=== PATIENT | male | born 1940 | race Caucasian/White ===

== ENCOUNTER 2016-06-02 15:09 | Outpatient (RCR) | payer MEDICARE ==
--- OUTSIDE RECORDS SUMMARY | 2016-03-24 14:20 | XMS REPORT | Continuity of Care Document ---
Author Author [facility] Organization [facility] Address Unknown Phone Unavailable Care Team Providers Care Recordings Librarian Name Role Phone Juancarlos Cabrera PCP [phone] Source Comments Some departments are not documenting in the electronic medical record. If you do not see the information that you expected, contact Release of Information in the Health Information Management department at [phone] for further assistance in locating additional records.[facility] Active Allergies and Adverse Reactions Allergen Noted Date Severity Reactions Comments Penicillins 09/29/2014 High HIVES, RASH, BLISTERS Current Medications Prescription Sig. Disp. Refills Start End Date Status Date quinapril(+) (ACCUPRIL) Take 20 mg by mouth every Active 20 mg tablet morning. lovastatin(+) (MEVACOR) Take 40 mg by mouth at Active 40 mg tablet bedtime daily. 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 DM (diabetes mellitus) (HCC) 09/29/2014 Social History Tobacco Use Types Packs/Day Years Used Date Former Smoker Cigarettes 1 20 Quit: 06/19/1979 Smokeless Tobacco: Never Used Alcohol Use Drinks/Week oz/Week Comments No Last Filed Vital Signs Vital Sign Reading Time Taken Blood Pressure 158/84 03/24/2015 2:19 PM CDT Pulse 50 03/24/2015 2:00 PM CDT Temperature 36.3 C (97.3 F) 03/24/2015 2:00 PM CDT Respiratory Rate - - Height 1.803 m (5' 11") 03/24/2015 2:00 PM CDT Weight 93.713 kg (206 lb 9.6 oz) 03/24/2015 2:00 PM CDT Body Mass Index 28.83 03/24/2015 2:00 PM CDT Oxygen Saturation 99% 03/24/2015 2:00 PM CDT Plan of Care Health Maintenance Due Date Last Done Comments Physical (Comprehensive) 1947 Exam Pertussis Vaccine 1952 Tetanus Vaccine 1958 Colorectal Cancer 1991 Screening Shingles Vaccine 2001 Prevnar/Pneumovax (#1) 2006 Influenza Vaccine 02/18/2016 Results from Last 3 Months Not on file
[2016-03-24 16:18] LABS: BASOPHILS % (AUTO) 0 % (0-10); EOSINOPHILS # (AUTO) 0.1 10^3/uL (0.0-0.3); EOSINOPHILS % (AUTO) 1 % (0-10); LYMPHOCYTES # (AUTO) 1.1 X 10^3 (1.0-4.0); LYMPHOCYTES % (AUTO) 11 % (12-44); MEAN CORPUSCULAR HGB CONC 33 G/DL (32-36); MEAN CORPUSCULAR VOLUME 98 FL (80-99); MONOCYTES # (AUTO) 0.9 X 10^3 (0.0-1.0); MONOCYTES % (AUTO) 9 % (0-12); NEUTROPHILS # (AUTO) 7.7 X 10^3 (1.8-7.8); NEUTROPHILS % (AUTO) 79 % (42-75); PLATELET COUNT 241 10^3/uL (130-400); RED BLOOD COUNT 3.54 10^6/uL (4.35-5.85); RED CELL DISTRIBUTION WIDTH 15.8 % (10.0-14.5); WHITE BLOOD COUNT 9.9 10^3/uL (4.3-11.0)
[2016-03-24 16:24] LABS: MEAN CORPUSCULAR HEMOGLOBIN 32 PG (25-34)
[2016-03-24 16:56] LABS: ALANINE AMINOTRANSFERASE 25 U/L (0-55); ALBUMIN 3.6 G/DL (3.2-4.5); ANION GAP 8 MMOL/L (5-14); ASPARTATE AMINO TRANSFERASE 20 U/L (5-34); BILIRUBIN,TOTAL 0.5 MG/DL (0.1-1.0); BLOOD UREA NITROGEN 17 MG/DL (7-18); BUN/CREATININE RATIO 18; CALCIUM 9.7 MG/DL (8.5-10.1); CARBON DIOXIDE 24 MMOL/L (21-32); CHLORIDE 107 MMOL/L (98-107); CREATININE SERUM 0.95 MG/DL (0.60-1.30); GFR ESTIMATED > 60; GLUCOSE 115 MG/DL (70-105); POTASSIUM 4.3 MMOL/L (3.6-5.0); SODIUM 139 MMOL/L (135-145); TOTAL PROTEIN 6.4 G/DL (6.4-8.2)
[2016-03-24 17:17] LABS: THYROID STIMULATING HORMONE 1.26 UIU/ML (0.35-4.94)
[2016-03-25 11:19] LABS: %SAT TOTAL IRON BINDING CAPIC 13 % (15-50); TIBC 211 ug/dL (280-380)
[2016-03-25 11:51] LABS: UIBC 183 ug/dL (55-450)
[2016-03-28 07:39] LABS: FERRITIN 286 ng/mL (25-300)
[2016-04-07 16:43] LABS: BASOPHILS % (AUTO) 0 % (0-10); EOSINOPHILS # (AUTO) 0.1 10^3/uL (0.0-0.3); EOSINOPHILS % (AUTO) 1 % (0-10); LYMPHOCYTES # (AUTO) 0.9 X 10^3 (1.0-4.0); LYMPHOCYTES % (AUTO) 9 % (12-44); MEAN CORPUSCULAR HEMOGLOBIN 32 PG (25-34); MEAN CORPUSCULAR HGB CONC 33 G/DL (32-36); MEAN CORPUSCULAR VOLUME 97 FL (80-99); MEAN PLATELET VOLUME 9.1 FL (7.4-10.4); MONOCYTES # (AUTO) 0.7 X 10^3 (0.0-1.0); MONOCYTES % (AUTO) 7 % (0-12); NEUTROPHILS # (AUTO) 8.7 X 10^3 (1.8-7.8); NEUTROPHILS % (AUTO) 84 % (42-75); PLATELET COUNT 278 10^3/uL (130-400); RED BLOOD COUNT 3.73 10^6/uL (4.35-5.85); RED CELL DISTRIBUTION WIDTH 15.2 % (10.0-14.5); WHITE BLOOD COUNT 10.4 10^3/uL (4.3-11.0)
[2016-04-07 17:20] LABS: ALANINE AMINOTRANSFERASE 30 U/L (0-55); ALBUMIN 3.6 G/DL (3.2-4.5); ANION GAP 9 MMOL/L (5-14); ASPARTATE AMINO TRANSFERASE 23 U/L (5-34); BILIRUBIN,TOTAL 0.6 MG/DL (0.1-1.0); BLOOD UREA NITROGEN 16 MG/DL (7-18); BUN/CREATININE RATIO 18; CALCIUM 10.2 MG/DL (8.5-10.1); CARBON DIOXIDE 26 MMOL/L (21-32); CHLORIDE 102 MMOL/L (98-107); CREATININE SERUM 0.87 MG/DL (0.60-1.30); GFR ESTIMATED > 60; GLUCOSE 142 MG/DL (70-105); POTASSIUM 4.1 MMOL/L (3.6-5.0); SODIUM 137 MMOL/L (135-145); TOTAL PROTEIN 6.8 G/DL (6.4-8.2)
[2016-04-07 17:44] LABS: THYROID STIMULATING HORMONE 1.38 UIU/ML (0.35-4.94)
[2016-04-08 12:16] LABS: %SAT TOTAL IRON BINDING CAPIC 18 % (15-50); TIBC 224 ug/dL (280-380)
[2016-04-11 09:46] LABS: FERRITIN 411 ng/mL (25-300); UIBC 183 ug/dL (55-450)
[2016-04-21 16:29] LABS: BASOPHILS % (AUTO) 0 % (0-10); EOSINOPHILS # (AUTO) 0.1 10^3/uL (0.0-0.3); EOSINOPHILS % (AUTO) 1 % (0-10); LYMPHOCYTES % (AUTO) 10 % (12-44); MEAN CORPUSCULAR HEMOGLOBIN 32 PG (25-34); MEAN CORPUSCULAR HGB CONC 33 G/DL (32-36); MEAN CORPUSCULAR VOLUME 99 FL (80-99); MEAN PLATELET VOLUME 9.3 FL (7.4-10.4); MONOCYTES # (AUTO) 0.9 X 10^3 (0.0-1.0); MONOCYTES % (AUTO) 9 % (0-12); NEUTROPHILS # (AUTO) 8.7 X 10^3 (1.8-7.8); NEUTROPHILS % (AUTO) 80 % (42-75); PLATELET COUNT 289 10^3/uL (130-400); RED BLOOD COUNT 3.44 10^6/uL (4.35-5.85); RED CELL DISTRIBUTION WIDTH 15.7 % (10.0-14.5); WHITE BLOOD COUNT 10.9 10^3/uL (4.3-11.0)
[2016-04-21 17:02] LABS: ALANINE AMINOTRANSFERASE 39 U/L (0-55); ALBUMIN 3.4 G/DL (3.2-4.5); ANION GAP 7 MMOL/L (5-14); ASPARTATE AMINO TRANSFERASE 32 U/L (5-34); BILIRUBIN,TOTAL 0.5 MG/DL (0.1-1.0); BLOOD UREA NITROGEN 19 MG/DL (7-18); BUN/CREATININE RATIO 18; CALCIUM 10.1 MG/DL (8.5-10.1); CARBON DIOXIDE 26 MMOL/L (21-32); CHLORIDE 104 MMOL/L (98-107); CREATININE SERUM 1.08 MG/DL (0.60-1.30); GFR ESTIMATED > 60; GLUCOSE 150 MG/DL (70-105); POTASSIUM 4.2 MMOL/L (3.6-5.0); SODIUM 137 MMOL/L (135-145); TOTAL PROTEIN 6.4 G/DL (6.4-8.2)
[2016-04-22 10:58] LABS: %SAT TOTAL IRON BINDING CAPIC 19 % (15-50); TIBC 182 ug/dL (280-380)
[2016-04-24 15:24] LABS: FERRITIN 427 ng/mL (25-300); UIBC 147 ug/dL (55-450)
[2016-05-05 16:54] LABS: BASOPHILS % (AUTO) 0 % (0-10); EOSINOPHILS # (AUTO) 0.1 10^3/uL (0.0-0.3); EOSINOPHILS % (AUTO) 1 % (0-10); LYMPHOCYTES # (AUTO) 1.1 X 10^3 (1.0-4.0); LYMPHOCYTES % (AUTO) 10 % (12-44); MEAN CORPUSCULAR HEMOGLOBIN 32 PG (25-34); MEAN CORPUSCULAR HGB CONC 32 G/DL (32-36); MEAN CORPUSCULAR VOLUME 99 FL (80-99); MEAN PLATELET VOLUME 8.9 FL (7.4-10.4); MONOCYTES # (AUTO) 0.9 X 10^3 (0.0-1.0); MONOCYTES % (AUTO) 9 % (0-12); NEUTROPHILS # (AUTO) 8.6 X 10^3 (1.8-7.8); NEUTROPHILS % (AUTO) 80 % (42-75); PLATELET COUNT 289 10^3/uL (130-400); RED BLOOD COUNT 3.22 10^6/uL (4.35-5.85); RED CELL DISTRIBUTION WIDTH 15.8 % (10.0-14.5); WHITE BLOOD COUNT 10.7 10^3/uL (4.3-11.0)
[2016-05-05 17:32] LABS: ALANINE AMINOTRANSFERASE 35 U/L (0-55); ALBUMIN 3.3 G/DL (3.2-4.5); ANION GAP 6 MMOL/L (5-14); ASPARTATE AMINO TRANSFERASE 31 U/L (5-34); BILIRUBIN,TOTAL 0.4 MG/DL (0.1-1.0); BLOOD UREA NITROGEN 19 MG/DL (7-18); BUN/CREATININE RATIO 17; CALCIUM 9.6 MG/DL (8.5-10.1); CARBON DIOXIDE 26 MMOL/L (21-32); CHLORIDE 108 MMOL/L (98-107); CREATININE SERUM 1.15 MG/DL (0.60-1.30); GFR ESTIMATED > 60; GLUCOSE 114 MG/DL (70-105); POTASSIUM 4.3 MMOL/L (3.6-5.0); SODIUM 140 MMOL/L (135-145); TOTAL PROTEIN 6.2 G/DL (6.4-8.2)
[2016-05-19 16:22] LABS: BASOPHILS % (AUTO) 0 % (0-10); EOSINOPHILS # (AUTO) 0.1 10^3/uL (0.0-0.3); EOSINOPHILS % (AUTO) 1 % (0-10); LYMPHOCYTES % (AUTO) 8 % (12-44); MEAN CORPUSCULAR HEMOGLOBIN 32 PG (25-34); MEAN CORPUSCULAR HGB CONC 32 G/DL (32-36); MEAN CORPUSCULAR VOLUME 100 FL (80-99); MEAN PLATELET VOLUME 8.6 FL (7.4-10.4); MONOCYTES % (AUTO) 8 % (0-12); NEUTROPHILS # (AUTO) 11.1 X 10^3 (1.8-7.8); NEUTROPHILS % (AUTO) 84 % (42-75); PLATELET COUNT 351 10^3/uL (130-400); RED BLOOD COUNT 3.61 10^6/uL (4.35-5.85); RED CELL DISTRIBUTION WIDTH 15.8 % (10.0-14.5); WHITE BLOOD COUNT 13.2 10^3/uL (4.3-11.0)
[2016-05-19 16:55] LABS: ALBUMIN 3.6 G/DL (3.2-4.5); BILIRUBIN,TOTAL 0.5 MG/DL (0.1-1.0); CALCIUM 10.4 MG/DL (8.5-10.1); CREATININE SERUM 1.2 MG/DL (0.60-1.30); POTASSIUM 4.9 MMOL/L (3.6-5.0); TOTAL PROTEIN 6.8 G/DL (6.4-8.2)
[2016-05-20 11:07] LABS: %SAT TOTAL IRON BINDING CAPIC 12 % (15-50); TIBC 208 ug/dL (280-380)
[2016-05-22 10:50] LABS: FERRITIN 501 ng/mL (25-300); UIBC 182 ug/dL (55-450)
[~2016-06-02] VITALS: Ht 180.3 cm; Wt 88.5 kg
[~2016-06-02 15:09] MED LIST: ATEN25TA PO; CEPH500C PO; GLIM2TAB PO; HYDR-3454 PO; LOVA40TA2 PO; MTF500T PO; NIVOLUMAB IV SCH; NS (IVPB) 250 ML IV SCH; NS IV SCH; QUIN20TA15 PO; QUIN40TA17 PO; SIMV40TA4 PO; TRIA1TAB5 PO; VICODIN 5/325 PO
== END 2016-06-22 | disposition home or self-care (01) ==
LOC: PAR 15:09
PROVIDERS: ATTEND Internal Medicine Hematology & Oncology
DX: Z51.11 Encounter for antineoplastic chemotherapy (principal); C44.221 Squamous cell carcinoma of skin of unspecified ear and external auricular canal; C77.0 Secondary and unspecified malignant neoplasm of lymph nodes of head, face and neck; E11.9 Type 2 diabetes mellitus without complications; D64.9 Anemia, unspecified; Z92.3 Personal history of irradiation; Z79.899 Other long term (current) drug therapy
CPT/HCPCS: 36415; 36591; 80053; 82728; 83540; 84443; 85025; 96413; 99213

== ENCOUNTER 2016-07-06 12:34 | Outpatient (RCR) | payer MEDICARE ==
--- OUTSIDE RECORDS SUMMARY | 2016-06-08 08:39 | XMS REPORT | Continuity of Care Document ---
Author Author [facility] Organization [facility] Address Unknown Phone Unavailable Care Team Providers Care Program Project Manager Name Role Phone Juancarlos Cabrera PCP [phone] Source Comments Some departments are not documenting in the electronic medical record. If you do not see the information that you expected, contact Release of Information in the Health Information Management department at [phone] for further assistance in locating additional records.[facility] Active Allergies and Adverse Reactions Allergen Noted Date Severity Reactions Comments Penicillins 09/29/2014 High HIVES, RASH, BLISTERS Current Medications Prescription Sig. Disp. Refills Start End Date Status Date quinapril(+) (ACCUPRIL) Take 20 mg by mouth every Active 20 mg tablet morning. FERROUS FUMARATE (IRON Take by mouth. Active PO) omeprazole DR(+) Take 20 mg by mouth daily Active (PRILOSEC) 20 mg capsule before breakfast. MULTIVITAMINS WITH Take by mouth. 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) 05/17/2016 [facility] Radiology Klaie Leos MD Encounter 05/17/2016 [facility] Radiology Kalie Leos MD Encounter 05/17/2016 Cancer Otolaryngology Kalie Leos MD Conference 05/17/2016 Ancillary Otolaryngology Kalie Leos MD Skin cancer ( Primary Dx) Orders 05/17/2016 Screening Form 05/02/2016 Office Visit Otolaryngology Kalie Leos MD Skin cancer (Primary Dx); 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) Social History Tobacco Use Types Packs/Day Years Used Date Former Smoker Cigarettes 1 20 Quit: 06/19/1979 Smokeless Tobacco: Never Used Alcohol Use Drinks/Week oz/Week Comments No Last Filed Vital Signs Vital Sign Reading Time Taken Blood Pressure 143/79 05/17/2016 2:00 PM SCREEDMAN/LABORER Pulse 70 05/17/2016 2:00 PM SCREEDMAN/LABORER Temperature 36.3 C (97.3 F) 03/24/2015 2:00 PM CDT Respiratory Rate - - Height 1.803 m (5' 11") 05/17/2016 2:00 PM SCREEDMAN/LABORER Weight 86.728 kg (191 lb 3.2 oz) 05/17/2016 2:00 PM SCREEDMAN/LABORER Body Mass Index 26.68 05/17/2016 2:00 PM SCREEDMAN/LABORER Oxygen Saturation 99% 03/24/2015 2:00 PM CDT Plan of Care Date Type Specialty Providers Description 08/15/2016 Appointment Otolaryngology Kalie Leos MD [address] [facility] [address] [place] [address] [phone] (Fax) Health Maintenance Due Date Last Done Comments Physical (Comprehensive) 1947 Exam Pertussis Vaccine 1952 Tetanus Vaccine 1958 Colorectal Cancer 1991 Screening Shingles Vaccine 2001 Prevnar/Pneumovax (#1) 2006 Influenza Vaccine 02/18/2016 Results from Last 3 Months NM PET SCAN TORSO (SKULL-THIGHS) (05/17/2016 10:19 AM) Impressions Prior right periauricular mass resection and right neck dissection with development of right suboccipital hypermetabolic mass consistent with local recurrence. No evidence of metabolically active regional kelly or distant metastatic disease. Approved by Gordy Rodriguez M.D. on 05/17/2016 10:45 AM By my electronic signature, I attest that I have personally reviewed the images for this examination and formulated the interpretations and opinions expressed in this report Finalized by Jamie Devine M.D. on 05/17/2016 10:59 AM. Dictated by Gordy Rodriguez M.D. on 05/17/2016 10:22 AM. Narrative PET/CT NECK, CHEST, ABDOMEN AND PELVIS CLINICAL HISTORY: Male, 76 years old. 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 COMPARISON: April 07, 2015. RADIOPHARMACEUTICAL: 16.1 mCi IV Fluorine-18 fluorodeoxyglucose (FDG) BLOOD GLUCOSE LEVEL AT THE TIME OF RADIOPHARMACEUTICAL ADMINISTRATION: 108 mg / dL TECHNIQUE: Routine PET images ranging from the base of the skull to the upper thighs were obtained 60 minutes after IV administration of F-18 Fluorodeoxyglucose (FDG). PET images were reviewed in standard orthogonal projections. Low dose non- contrast CT imaging was performed for attenuation correction and localization purposes. FINDINGS: Mean blood pool SUV 2.18, maximum 3.55. Previous mean 1.91, maximum 2.15. Mean hepatic SUV 2.22, maximum 3.65. Previous mean 2.12, maximum 3.07. Physiologic uptake of F-18 Fluorodeoxyglucose (FDG) tracer is seen within the brain, heart, kidneys, bladder, and bowel. Head / Neck: Prior right periauricular mass resection and right neck dissection. Development of right suboccipital hypermetabolic mass with max SUV of 34.95 (index 156), consistent with local recurrence. Chest: No metabolically active nodes are visualized in the chest. Abdomen / Pelvis: No metabolically active nodes are visualized in the abdomen or pelvis. Osseous Structures: Diffusely increased metabolic activity throughout the axial and proximal appendicular skeleton marrow which may reflect reactive marrow changes from chronic anemia. Additional significant low dose CT findings: Left subclavian chest port is in place. Moderate calcific coronary artery disease. Cholelithiasis. Small left renal hypodensities, likely reflecting cysts. Retained contrast within the renal collecting systems and urinary bladder. Moderate infrarenal aortoiliac atherosclerotic calcification. Occasional sigmoid diverticula. Degenerative changes of the bilateral SI joints. Partial opacification of a right frontal cell. Small left maxillary sinus mucosal retention cyst/polyp. Uncorrected PET images:The uncorrected PET images demonstrate no additional abnormality. Procedure Note Interface, Radiant Results - Tue May 17, 2016 11:02 AM SCREEDMAN/LABORER PET/CT NECK, CHEST, ABDOMEN AND PELVIS CLINICAL HISTORY: Male, 76 years old. 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 COMPARISON: April 07, 2015. RADIOPHARMACEUTICAL: 16.1 mCi IV Fluorine-18 fluorodeoxyglucose (FDG) BLOOD GLUCOSE LEVEL AT THE TIME OF RADIOPHARMACEUTICAL ADMINISTRATION: 108 mg / dL TECHNIQUE: Routine PET images ranging from the base of the skull to the upper thighs were obtained 60 minutes after IV administration of F-18 Fluorodeoxyglucose (FDG). PET images were reviewed in standard orthogonal projections. Low dose non- contrast CT imaging was performed for attenuation correction and localization purposes. FINDINGS: Mean blood pool SUV 2.18, maximum 3.55. Previous mean 1.91, maximum 2.15. Mean hepatic SUV 2.22, maximum 3.65. Previous mean 2.12, maximum 3.07. Physiologic uptake of F-18 Fluorodeoxyglucose (FDG) tracer is seen within the brain, heart, kidneys, bladder, and bowel. Head / Neck: Prior right periauricular mass resection and right neck dissection. Development of right suboccipital hypermetabolic mass with max SUV of 34.95 (index 156), consistent with local recurrence. Chest: No metabolically active nodes are visualized in the chest. Abdomen / Pelvis: No metabolically active nodes are visualized in the abdomen or pelvis. Osseous Structures: Diffusely increased metabolic activity throughout the axial and proximal appendicular skeleton marrow which may reflect reactive marrow changes from chronic anemia. Additional significant low dose CT findings: Left subclavian chest port is in place. Moderate calcific coronary artery disease. Cholelithiasis. Small left renal hypodensities, likely reflecting cysts. Retained contrast within the renal collecting systems and urinary bladder. Moderate infrarenal aortoiliac atherosclerotic calcification. Occasional sigmoid diverticula. Degenerative changes of the bilateral SI joints. Partial opacification of a right frontal cell. Small left maxillary sinus mucosal retention cyst/polyp. Uncorrected PET images: The uncorrected PET images demonstrate no additional abnormality. IMPRESSION Prior right periauricular mass resection and right neck dissection with development of right suboccipital hypermetabolic mass consistent with local recurrence. No evidence of metabolically active regional kelly or distant metastatic disease. Approved by Gordy Rodriguez M.D. on 05/17/2016 10:45 AM By my electronic signature, I attest that I have personally reviewed the images for this examination and formulated the interpretations and opinions expressed in this report Finalized by Jamie Devine M.D. on 05/17/2016 10:59 AM. Dictated by Gordy Rodriguez M.D. on 05/17/2016 10:[address] NECK W CONTRAST (05/17/2016 9:50 AM) Impressions 1. Large recurrent infiltrative neck mass involving the post-auricular scalp and high right neck. Tumor abuts the mastoid and occipital bones without gross osteolysis. 2. Deep extension to the high right carotid space and paravertebral spaces at the C1-C3 levels. There is loss of normal fat planes and possible tumor encasement of the right vertebral artery at the C1 level. 3. No left neck lymphadenopathy or mass.. Finalized by Tobias Morgan M.D. on 05/17/2016 1:43 PM. Dictated by Tobias Morgan M.D. on 05/17/2016 1:[address] neck History: Skin cancer Technique: Multiple contiguous axial images were obtained through the neck following the administration of Isovue-300 contrast. Coronal and sagittal reconstructions were performed from the source data. Findings: There are postsurgical changes of a previous right parotidectomy, right post reticular scalp resection and right modified radical neck dissection. There is a heterogeneous, peripherally enhancing and partially low attenuation residual/recurrent mass involving the right posterior reticular low scalp and high right neck. This extends to the skin. Medially it abuts the mastoid and occipital bone without gross osteolysis. The medial extent is inseparable from soft tissue thickening and/or tumor at the right carotid space. It also extends to the right paraspinous space at the C1-C3 levels. The mass surrounds the right vertebral artery at the C1 level. The mass measures at least 8.6 x 3.5 x 7.1 cm (image 89 of series 451 and image 26 of series 2). The oral cavity, pharynx, and larynx are unremarkable. There are small normal- sized left neck nodes. The largest left neck node continues to have a fatty hilus and short axes of less than 1 cm measuring 1.6 x 0.9 cm on image 80 of series 2. Small upper mediastinal nodes have short axes of less than 1 cm. There is a left chest port present. 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 The left parotid gland, submandibular glands , and the thyroid are unremarkable. There are degenerative changes of the cervical spine. The patient is edentulous. There is a small amount of fluid within the mastoid air cells bilaterally. Procedure Note Interface, Radiant Results - Tue May 17, 2016 1:46 PM SCREEDMAN/LABORER CT neck History: Skin cancer Technique: Multiple contiguous axial images were obtained through the neck following the administration of Isovue-300 contrast. Coronal and sagittal reconstructions were performed from the source data. Findings: There are postsurgical changes of a previous right parotidectomy, right post reticular scalp resection and right modified radical neck dissection. There is a heterogeneous, peripherally enhancing and partially low attenuation residual/recurrent mass involving the right posterior reticular low scalp and high right neck. This extends to the skin. Medially it abuts the mastoid and occipital bone without gross osteolysis. The medial extent is inseparable from soft tissue thickening and/or tumor at the right carotid space. It also extends to the right paraspinous space at the C1-C3 levels. The mass surrounds the right vertebral artery at the C1 level. The mass measures at least 8.6 x 3.5 x 7.1 cm (image 89 of series 451 and image 26 of series 2). The oral cavity, pharynx, and larynx are unremarkable. There are small normal- sized left neck nodes. The largest left neck node continues to have a fatty hilus and short axes of less than 1 cm measuring 1.6 x 0.9 cm on image 80 of series 2. Small upper mediastinal nodes have short axes of less than 1 cm. There is a left chest port present. 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 The left parotid gland, submandibular glands , and the thyroid are unremarkable. There are degenerative changes of the cervical spine. The patient is edentulous. There is a small amount of fluid within the mastoid air cells bilaterally. IMPRESSION 1. Large recurrent infiltrative neck mass involving the post-auricular scalp and high right neck. Tumor abuts the mastoid and occipital bones without gross osteolysis. 2. Deep extension to the high right carotid space and paravertebral spaces at the C1-C3 levels. There is loss of normal fat planes and possible tumor encasement of the right vertebral artery at the C1 level. 3. No left neck lymphadenopathy or mass.. Finalized by Tobias Morgan M.D. on 05/17/2016 1:43 PM. Dictated by Tobias Morgan M.D. on 05/17/2016 1:[address] CHEST W CONTRAST (05/17/2016 9:50 AM) Impressions 1. No evidence of thoracic metastatic disease. 2. Cholelithiasis. 3. At least moderate coronary artery calcification. Finalized by Marcelo Bolaños M.D. on 05/17/2016 10:33 AM. Dictated by Marcelo Bolaños M.D. on 05/17/2016 10:[address] Chest Clinical Indication: Skin cancer right tear. Restaging. Technique: Multiple contiguous axial CT images were obtained through the chest during IV administration of 150 mL Isovue-300 IV contrast in conjunction with today's CT neck.Post processing coronal and sagittal reconstruction images were made from the axial images. Comparison: Outside chest CT dated October 02, 2014. Findings: A left IJ chest port has been placed with the tip in the mid SVC. Axilla, Mediastinum and Elvira: No lymphadenopathy. Heart and Great Vessels: The heart size is mildly enlarged. There is no pericardial effusion. There is at least moderate coronary artery calcification. Lungs and Pleura: There is mild dependent atelectasis. A tiny calcified granuloma is again noted in the left lung base. No soft tissue pulmonary nodules are identified. No pleural effusions. Chest Wall and Osseous Structures: No destructive osseous lesions. Visualized Upper Abdomen: Cholelithiasis is noted. Small probable cyst is seen in the left kidney. Procedure Note Interface, Radiant Results - Tue May 17, 2016 10:37 AM SCREEDMAN/LABORER CT Chest Clinical Indication: Skin cancer right tear. Restaging. Technique: Multiple contiguous axial CT images were obtained through the chest during IV administration of 150 mL Isovue-300 IV contrast in conjunction with today's CT neck. Post processing coronal and sagittal reconstruction images were made from the axial images. Comparison: Outside chest CT dated October 02, 2014. Findings: A left IJ chest port has been placed with the tip in the mid SVC. Axilla, Mediastinum and Elvira: No lymphadenopathy. Heart and Great Vessels: The heart size is mildly enlarged. There is no pericardial effusion. There is at least moderate coronary artery calcification. Lungs and Pleura: There is mild dependent atelectasis. A tiny calcified granuloma is again noted in the left lung base. No soft tissue pulmonary nodules are identified. No pleural effusions. Chest Wall and Osseous Structures: No destructive osseous lesions. Visualized Upper Abdomen: Cholelithiasis is noted. Small probable cyst is seen in the left kidney. IMPRESSION 1. No evidence of thoracic metastatic disease. 2. Cholelithiasis. 3. At least moderate coronary artery calcification. Finalized by Marcelo Bolaños M.D. on 05/17/2016 10:33 AM. Dictated by Marcelo Bolaños M.D. on 05/17/2016 10:27 AM. POC CREATININE, RAD (05/17/2016 8:56 AM) Component Value Range Creatinine, POC 1.0 0.4-1.24 MG/DL
[2016-06-17 09:42] LABS: BASOPHILS % (AUTO) 0 % (0-10); EOSINOPHILS # (AUTO) 0.1 10^3/uL (0.0-0.3); EOSINOPHILS % (AUTO) 1 % (0-10); LYMPHOCYTES % (AUTO) 6 % (12-44); MEAN CORPUSCULAR HEMOGLOBIN 33 PG (25-34); MEAN CORPUSCULAR HGB CONC 34 G/DL (32-36); MEAN CORPUSCULAR VOLUME 99 FL (80-99); MONOCYTES % (AUTO) 6 % (0-12); NEUTROPHILS % (AUTO) 87 % (42-75); PLATELET COUNT 268 10^3/uL (130-400); RED BLOOD COUNT 3.29 10^6/uL (4.35-5.85)
[2016-06-17 10:05] LABS: ALBUMIN 3.3 G/DL (3.2-4.5); ANION GAP 10 MMOL/L (5-14); ASPARTATE AMINO TRANSFERASE 29 U/L (5-34); BILIRUBIN,TOTAL 0.6 MG/DL (0.1-1.0); BLOOD UREA NITROGEN 19 MG/DL (7-18); BUN/CREATININE RATIO 19; CALCIUM 10.2 MG/DL (8.5-10.1); CARBON DIOXIDE 22 MMOL/L (21-32); CHLORIDE 104 MMOL/L (98-107); CREATININE SERUM 1.02 MG/DL (0.60-1.30); GFR ESTIMATED > 60; GLUCOSE 192 MG/DL (70-105); POTASSIUM 3.8 MMOL/L (3.6-5.0); SODIUM 136 MMOL/L (135-145); TOTAL PROTEIN 6.3 G/DL (6.4-8.2)
[2016-06-17 10:20] LABS: ALANINE AMINOTRANSFERASE 35 U/L (0-55)
[~2016-07-06] VITALS: Ht 180.3 cm; Wt 88.5 kg
[~2016-07-06 12:34] MED LIST changes: -NIVOLUMAB IV SCH; -NS (IVPB) 250 ML IV SCH; -NS IV SCH; +PEMBROLIZUMAB 200 MG in NS (IVPB) CANCER CENTER 50 ML IV SCH
[2016-07-06 13:24] LABS: BASOPHILS % (AUTO) 0 % (0-10); EOSINOPHILS % (AUTO) 0 % (0-10); LYMPHOCYTES # (AUTO) 1.3 X 10^3 (1.0-4.0); LYMPHOCYTES % (AUTO) 7 % (12-44); MEAN CORPUSCULAR HEMOGLOBIN 34 PG (25-34); MEAN CORPUSCULAR HGB CONC 33 G/DL (32-36); MEAN CORPUSCULAR VOLUME 102 FL (80-99); MEAN PLATELET VOLUME 8.2 FL (7.4-10.4); MONOCYTES # (AUTO) 1.2 X 10^3 (0.0-1.0); MONOCYTES % (AUTO) 6 % (0-12); NEUTROPHILS # (AUTO) 16.4 X 10^3 (1.8-7.8); NEUTROPHILS % (AUTO) 86 % (42-75); PLATELET COUNT 308 10^3/uL (130-400); RED BLOOD COUNT 3.23 10^6/uL (4.35-5.85); RED CELL DISTRIBUTION WIDTH 14.8 % (10.0-14.5)
[2016-07-06 14:02] LABS: ALANINE AMINOTRANSFERASE 41 U/L (0-55); ALBUMIN 3.3 G/DL (3.2-4.5); ANION GAP 9 MMOL/L (5-14); ASPARTATE AMINO TRANSFERASE 31 U/L (5-34); BILIRUBIN,TOTAL 0.5 MG/DL (0.1-1.0); BLOOD UREA NITROGEN 24 MG/DL (7-18); BUN/CREATININE RATIO 21; CALCIUM 11.1 MG/DL (8.5-10.1); CARBON DIOXIDE 27 MMOL/L (21-32); CHLORIDE 102 MMOL/L (98-107); CREATININE SERUM 1.14 MG/DL (0.60-1.30); GFR ESTIMATED > 60; GLUCOSE 117 MG/DL (70-105); POTASSIUM 5.2 MMOL/L (3.6-5.0); SODIUM 138 MMOL/L (135-145); TOTAL PROTEIN 6.8 G/DL (6.4-8.2)
== END 2016-09-06 | disposition home or self-care (01) ==
LOC: ONC 12:34
PROVIDERS: ATTEND Internal Medicine Hematology & Oncology
DX: Z51.11 Encounter for antineoplastic chemotherapy (principal); C44.221 Squamous cell carcinoma of skin of unspecified ear and external auricular canal; C77.0 Secondary and unspecified malignant neoplasm of lymph nodes of head, face and neck; E11.9 Type 2 diabetes mellitus without complications; D64.9 Anemia, unspecified; Z92.3 Personal history of irradiation
CPT/HCPCS: 36415; 36591; 80053; 85025; 96413; 99213

== ENCOUNTER 2016-08-03 10:49 | Outpatient (RCR) | payer MEDICARE ==
--- OUTSIDE RECORDS SUMMARY | 2016-07-20 09:16 | XMS REPORT | Continuity of Care Document ---
Author Author [facility] Organization [facility] Address Unknown Phone Unavailable Care Team Providers Care Braze Operator Name Role Phone Juancarlos Cabrera PCP [phone] Source Comments Some departments are not documenting in the electronic medical record. If you do not see the information that you expected, contact Release of Information in the Health Information Management department at [phone] for further assistance in locating additional records.[facility] Active Allergies and Adverse Reactions Allergen Noted [...] of lymph nodes of neck (HCC) 05/17/2016 [facility] Radiology Kalie Leos MD Encounter 05/17/2016 [facility] Radiology Kalie Leos MD Encounter 05/17/2016 [...] Taken Blood Pressure 143/79 05/17/2016 2:00 PM FIBERGLASS MACHINE OPERATOR Pulse 70 05/17/2016 2:00 PM FIBERGLASS MACHINE OPERATOR Temperature 36.3 C (97.3 F) 03/24/2015 2:00 PM CDT Respiratory Rate - - Height 1.803 m (5' 11") 05/17/2016 2:00 PM FIBERGLASS MACHINE OPERATOR Weight 86.728 kg (191 lb 3.2 oz) 05/17/2016 2:00 PM FIBERGLASS MACHINE OPERATOR Body Mass Index 26.68 05/17/2016 2:00 PM FIBERGLASS MACHINE OPERATOR Oxygen Saturation 99% 03/24/2015 2:00 PM CDT Plan of Care Date Type Specialty Providers Description 08/30/2016 Appointment Otolaryngology Kalie Leos MD [address] [facility] [address] [place] [address] [phone] (Fax) Health Maintenance Due Date Last Done [...] - Tue May 17, 2016 11:02 AM FIBERGLASS MACHINE OPERATOR PET/CT NECK, CHEST, ABDOMEN AND PELVIS CLINICAL [...] - Tue May 17, 2016 1:46 PM FIBERGLASS MACHINE OPERATOR CT neck History: Skin cancer Technique: Multiple [...] - Tue May 17, 2016 10:37 AM FIBERGLASS MACHINE OPERATOR CT Chest Clinical Indication: Skin cancer right [...]
[~2016-08-03 10:49] MED LIST changes: -PEMBROLIZUMAB 200 MG in NS (IVPB) CANCER CENTER 50 ML IV SCH
== END 2016-08-03 16:00 | disposition home or self-care (01) ==
LOC: WOUNDCARE 10:49
PROVIDERS: ATTEND Surgery
DX: L98.494 Non-pressure chronic ulcer of skin of other sites with necrosis of bone (principal); L59.9 Disorder of the skin and subcutaneous tissue related to radiation, unspecified; C44.222 Squamous cell carcinoma of skin of right ear and external auricular canal; C77.0 Secondary and unspecified malignant neoplasm of lymph nodes of head, face and neck
CPT/HCPCS: 99212; 99213

== ENCOUNTER → 2016-09-05 | Outpatient (CLI) | payer MEDICARE ==
[~2016-09-05] MED LIST changes: +CATHETER FLUSH 10 ML SYR IV PRN; +IOHEXOL 350 MG/ML 100 ML (OMNIPAQUE 350) VIAL IV ONE; +NS 100 ML (IVPB) BAG IV ONE
--- OUTSIDE RECORDS SUMMARY | 2016-09-05 13:53 | XMS REPORT | Continuity of Care Document ---
Author Author [facility] Organization [facility] Address Unknown Phone Unavailable Care Team Providers Care Cigarette Maker Name Role Phone Juancarlos Cabrera PCP [phone] Source Comments Some departments are not documenting in the electronic medical record. If you do not see the information that you expected, contact Release of Information in the Health Information Management department at [phone] for further assistance in locating additional records.[facility] Active Allergies and Adverse Reactions [...] Take by mouth. Active FLUORIDE (MULTI-VITAMIN PO) capecitabine (XELODA) 500 Take by mouth twice Active mg tablet daily with meals. Take within 30 minutes of a meal. Pt states that he takes 2 in the am and 3 in the pm MORPHINE SULFATE Take by mouth. 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 DM (diabetes mellitus) (HCC) 09/29/2014 Most Recent Encounters Date Type Specialty Providers Description 08/30/2016 Office Visit Otolaryngology Kalie Leos MD Skin cancer (Primary Dx) Social History Tobacco Use Types Packs/Day Years Used Date Former Smoker Cigarettes 1 20 Quit: 06/19/1979 Smokeless Tobacco: Never Used Alcohol Use Drinks/Week oz/Week Comments No Last Filed Vital Signs Vital Sign Reading Time Taken Blood Pressure 144/76 08/30/2016 12:33 PM CDT Pulse 44 08/30/2016 12:33 PM CDT Temperature 36.3 C (97.3 F) 03/24/2015 2:00 PM CDT Respiratory Rate - - Height 1.803 m (5' 11") 08/30/2016 12:33 PM CDT Weight 81.92 kg (180 lb 9.6 oz) 08/30/2016 12:33 PM CDT Body Mass Index 25.2 08/30/2016 12:33 PM CDT Oxygen Saturation 99% 03/24/2015 2:00 PM CDT Plan of Care Date Type Specialty Providers Description 12/12/2016 Appointment Otolaryngology Kalie Leos MD [address] [facility] [address] [place] [address] [phone] (Fax) Health Maintenance Due Date Last Done Comments Physical (Comprehensive) 1947 Exam Pertussis Vaccine 1952 Tetanus Vaccine 1958 Colorectal Cancer 1991 Screening Shingles Vaccine 2001 Prevnar/Pneumovax (#1) 2006 Influenza Vaccine 02/17/2017 Results from Last 3 Months Not on file
--- NOTE | 2016-09-05 16:21 | Diagnostic Imaging Report ---
EXAMINATION: CT scan of the neck and chest performed with intravenous contrast. INDICATION: Squamous cell carcinoma. 100 mL of Omnipaque 350 is administered intravenously. COMPARISON: Comparison to 07/22/2015. FINDINGS: CT NECK: There is a poorly defined mass within the upper right side aspect of the neck that is associated with a skin ulceration or possibly a postsurgical defect. The mass and soft tissue fullness insinuates between the styloid and the mastoid process. There is new opacification in the inferior aspect of the right mastoid air cells. There is also new increased erosion in the right occipital/temporal junction in the skull just posterior to the right occipital lobe with increased soft tissue mass superficial to it at about 1.8 cm in soft tissue thickness. Accurate dimensions of the mass is difficult to measure, perhaps 7.5 x 3 cm is the best estimate for the largest axial dimension and craniocaudally 4.4 cm. Although there is decreased soft tissue thickening just inferior to the mastoid air cells compared to the previous exam, there is increased soft tissue thickening and fullness posterior to the right mastoid air cells. There is also increased soft tissue thickness in the mid neck laterally with 1.7 cm in short axis thickening seen. There is no discrete lymphadenopathy in the neck. There is no definite intracranial extension identified of this process. CT SCAN OF THE CHEST: The lungs demonstrate no significant consolidation, or suspicious nodule. The heart size is slightly prominent. There is no pleural or pericardial effusion. No significantly enlarged lymph nodes in the mediastinum, ok or in the axilla. Sections of the upper abdomen demonstrate evidence of gallstones and distention of the gallbladder with no CT evidence of cholecystitis. The osseous structures appear grossly unremarkable. IMPRESSION: CT NECK: There is increased soft tissue thickening in the right side of the neck along the right temporo-occipital lobe with new erosion adjacent portion of the skull with no definite intracranial extension. Also increased soft tissue thickening in the mid aspect of the neck laterally seen. There is interval decrease of soft tissue fullness just below the level of the right mastoid air cells which may relate to an interval intervention, necrosis or sloughed tissue with apparent development of a skin ulceration at this site. CT CHEST: No evidence of metastasis. Dictated by: Dictated on workstation # [id number]
== END ==
LOC: RAD 13:49
PROVIDERS: ATTEND Internal Medicine Hematology & Oncology
DX: C76.0 Malignant neoplasm of head, face and neck (principal)
CPT/HCPCS: 70491; 71260

== ENCOUNTER 2016-09-15 10:51 | Outpatient (RCR) | payer MEDICARE ==
--- OUTSIDE RECORDS SUMMARY | 2016-06-23 11:30 | XMS REPORT | Continuity of Care Document ---
Author Author [facility] Organization [facility] Address Unknown Phone Unavailable Care Team Providers Care Labor Operator Name Role Phone Juancarlos Cabrera PCP [phone] Source Comments Some departments are not documenting in the electronic medical record. If you do not see the information that you expected, contact Release of Information in the Health Information Management department at [phone] for further assistance in locating additional records.[facility] Active Allergies and Adverse Reactions Allergen [...] of lymph nodes of neck (HCC) 05/17/2016 [facility] Radiology Kalie Leos MD Encounter 05/17/2016 [facility] Radiology Kalie Leos MD Encounter 05/17/2016 Cancer [...] Taken Blood Pressure 143/79 05/17/2016 2:00 PM RUBY DEVELOPER Pulse 70 05/17/2016 2:00 PM RUBY DEVELOPER Temperature 36.3 C (97.3 F) 03/24/2015 2:00 PM CDT Respiratory Rate - - Height 1.803 m (5' 11") 05/17/2016 2:00 PM RUBY DEVELOPER Weight 86.728 kg (191 lb 3.2 oz) 05/17/2016 2:00 PM RUBY DEVELOPER Body Mass Index 26.68 05/17/2016 2:00 PM RUBY DEVELOPER Oxygen Saturation 99% 03/24/2015 2:00 PM CDT Plan of Care Date Type Specialty Providers Description 08/15/2016 Appointment Otolaryngology Kalie Leos MD [address] [facility] [address] [place] [address] [phone] (Fax) Health Maintenance Due Date Last Done [...] - Tue May 17, 2016 11:02 AM RUBY DEVELOPER PET/CT NECK, CHEST, ABDOMEN AND PELVIS CLINICAL [...] - Tue May 17, 2016 1:[address] neck History: Skin cancer Technique: Multiple [...] - Tue May 17, 2016 10:[address] Chest Clinical Indication: Skin cancer right [...]
[2016-07-14 16:17] LABS: BASOPHILS % (AUTO) 0 % (0-10); EOSINOPHILS % (AUTO) 0 % (0-10); LYMPHOCYTES # (AUTO) 1.2 X 10^3 (1.0-4.0); LYMPHOCYTES % (AUTO) 7 % (12-44); MEAN CORPUSCULAR HEMOGLOBIN 34 PG (25-34); MEAN CORPUSCULAR HGB CONC 33 G/DL (32-36); MEAN CORPUSCULAR VOLUME 103 FL (80-99); MEAN PLATELET VOLUME 8.6 FL (7.4-10.4); MONOCYTES % (AUTO) 6 % (0-12); NEUTROPHILS # (AUTO) 15.1 X 10^3 (1.8-7.8); NEUTROPHILS % (AUTO) 87 % (42-75); PLATELET COUNT 280 10^3/uL (130-400); RED BLOOD COUNT 3.09 10^6/uL (4.35-5.85); RED CELL DISTRIBUTION WIDTH 15.2 % (10.0-14.5); WHITE BLOOD COUNT 17.4 10^3/uL (4.3-11.0)
[2016-07-14 17:00] LABS: ALANINE AMINOTRANSFERASE 28 U/L (0-55); ALBUMIN 3.2 G/DL (3.2-4.5); ANION GAP 8 MMOL/L (5-14); ASPARTATE AMINO TRANSFERASE 23 U/L (5-34); BILIRUBIN,TOTAL 0.5 MG/DL (0.1-1.0); BLOOD UREA NITROGEN 24 MG/DL (7-18); BUN/CREATININE RATIO 21; CALCIUM 10.2 MG/DL (8.5-10.1); CARBON DIOXIDE 25 MMOL/L (21-32); CHLORIDE 102 MMOL/L (98-107); CREATININE SERUM 1.13 MG/DL (0.60-1.30); GFR ESTIMATED > 60; GLUCOSE 120 MG/DL (70-105); POTASSIUM 4.1 MMOL/L (3.6-5.0); SODIUM 135 MMOL/L (135-145); TOTAL PROTEIN 6.2 G/DL (6.4-8.2)
[2016-07-21 16:11] LABS: BASOPHILS % (AUTO) 0 % (0-10); EOSINOPHILS % (AUTO) 0 % (0-10); LYMPHOCYTES # (AUTO) 1.2 X 10^3 (1.0-4.0); LYMPHOCYTES % (AUTO) 8 % (12-44); MEAN CORPUSCULAR HGB CONC 33 G/DL (32-36); MEAN CORPUSCULAR VOLUME 104 FL (80-99); MEAN PLATELET VOLUME 8.5 FL (7.4-10.4); MONOCYTES % (AUTO) 6 % (0-12); NEUTROPHILS % (AUTO) 86 % (42-75); PLATELET COUNT 261 10^3/uL (130-400); RED BLOOD COUNT 3.19 10^6/uL (4.35-5.85); RED CELL DISTRIBUTION WIDTH 16.2 % (10.0-14.5); WHITE BLOOD COUNT 16.2 10^3/uL (4.3-11.0)
[2016-07-21 16:19] LABS: MEAN CORPUSCULAR HEMOGLOBIN 34 PG (25-34)
[2016-07-21 16:59] LABS: CALCIUM 10.6 MG/DL (8.5-10.1); CREATININE SERUM 1.18 MG/DL (0.60-1.30); POTASSIUM 5.1 MMOL/L (3.6-5.0)
[2016-07-28 16:18] LABS: BASOPHILS % (AUTO) 0 % (0-10); EOSINOPHILS # (AUTO) 0.1 10^3/uL (0.0-0.3); EOSINOPHILS % (AUTO) 1 % (0-10); LYMPHOCYTES # (AUTO) 1.2 X 10^3 (1.0-4.0); LYMPHOCYTES % (AUTO) 8 % (12-44); MEAN CORPUSCULAR HGB CONC 34 G/DL (32-36); MEAN CORPUSCULAR VOLUME 104 FL (80-99); MEAN PLATELET VOLUME 8.8 FL (7.4-10.4); MONOCYTES % (AUTO) 7 % (0-12); NEUTROPHILS # (AUTO) 12.6 X 10^3 (1.8-7.8); NEUTROPHILS % (AUTO) 84 % (42-75); PLATELET COUNT 249 10^3/uL (130-400); RED CELL DISTRIBUTION WIDTH 17.9 % (10.0-14.5); WHITE BLOOD COUNT 14.9 10^3/uL (4.3-11.0)
[2016-07-28 16:20] LABS: MEAN CORPUSCULAR HEMOGLOBIN 35 PG (25-34)
[2016-07-28 16:56] LABS: ALANINE AMINOTRANSFERASE 29 U/L (0-55); ALBUMIN 3.4 G/DL (3.2-4.5); ANION GAP 6 MMOL/L (5-14); ASPARTATE AMINO TRANSFERASE 26 U/L (5-34); BILIRUBIN,TOTAL 0.5 MG/DL (0.1-1.0); BLOOD UREA NITROGEN 20 MG/DL (7-18); BUN/CREATININE RATIO 18; CALCIUM 10.4 MG/DL (8.5-10.1); CARBON DIOXIDE 27 MMOL/L (21-32); CHLORIDE 105 MMOL/L (98-107); CREATININE SERUM 1.09 MG/DL (0.60-1.30); GFR ESTIMATED > 60; GLUCOSE 102 MG/DL (70-105); POTASSIUM 4.7 MMOL/L (3.6-5.0); SODIUM 138 MMOL/L (135-145); TOTAL PROTEIN 6.3 G/DL (6.4-8.2)
[2016-08-04 15:47] LABS: BASOPHILS % (AUTO) 0 % (0-10); EOSINOPHILS # (AUTO) 0.1 10^3/uL (0.0-0.3); EOSINOPHILS % (AUTO) 1 % (0-10); LYMPHOCYTES # (AUTO) 1.1 X 10^3 (1.0-4.0); LYMPHOCYTES % (AUTO) 7 % (12-44); MEAN CORPUSCULAR HEMOGLOBIN 36 PG (25-34); MEAN CORPUSCULAR HGB CONC 34 G/DL (32-36); MEAN CORPUSCULAR VOLUME 106 FL (80-99); MEAN PLATELET VOLUME 8.5 FL (7.4-10.4); MONOCYTES # (AUTO) 0.9 X 10^3 (0.0-1.0); MONOCYTES % (AUTO) 6 % (0-12); NEUTROPHILS # (AUTO) 12.6 X 10^3 (1.8-7.8); NEUTROPHILS % (AUTO) 86 % (42-75); PLATELET COUNT 346 10^3/uL (130-400); RED BLOOD COUNT 3.11 10^6/uL (4.35-5.85); RED CELL DISTRIBUTION WIDTH 18.1 % (10.0-14.5); WHITE BLOOD COUNT 14.7 10^3/uL (4.3-11.0)
[2016-08-04 16:28] LABS: ALANINE AMINOTRANSFERASE 24 U/L (0-55); ALBUMIN 3.3 G/DL (3.2-4.5); ANION GAP 7 MMOL/L (5-14); ASPARTATE AMINO TRANSFERASE 24 U/L (5-34); BILIRUBIN,TOTAL 0.7 MG/DL (0.1-1.0); BLOOD UREA NITROGEN 22 MG/DL (7-18); BUN/CREATININE RATIO 19; CALCIUM 10.1 MG/DL (8.5-10.1); CARBON DIOXIDE 28 MMOL/L (21-32); CHLORIDE 102 MMOL/L (98-107); CREATININE SERUM 1.15 MG/DL (0.60-1.30); GFR ESTIMATED > 60; GLUCOSE 113 MG/DL (70-105); POTASSIUM 4.8 MMOL/L (3.6-5.0); SODIUM 137 MMOL/L (135-145); TOTAL PROTEIN 6.2 G/DL (6.4-8.2)
[2016-08-04 16:54] LABS: THYROID STIMULATING HORMONE 0.62 UIU/ML (0.35-4.94)
[2016-08-11 16:24] LABS: BASOPHILS % (AUTO) 0 % (0-10); EOSINOPHILS # (AUTO) 0.1 10^3/uL (0.0-0.3); EOSINOPHILS % (AUTO) 1 % (0-10); LYMPHOCYTES # (AUTO) 1.5 X 10^3 (1.0-4.0); LYMPHOCYTES % (AUTO) 11 % (12-44); MEAN CORPUSCULAR HEMOGLOBIN 35 PG (25-34); MEAN CORPUSCULAR HGB CONC 33 G/DL (32-36); MEAN CORPUSCULAR VOLUME 107 FL (80-99); MEAN PLATELET VOLUME 8.5 FL (7.4-10.4); MONOCYTES # (AUTO) 1.1 X 10^3 (0.0-1.0); MONOCYTES % (AUTO) 8 % (0-12); NEUTROPHILS # (AUTO) 11.8 X 10^3 (1.8-7.8); NEUTROPHILS % (AUTO) 81 % (42-75); PLATELET COUNT 332 10^3/uL (130-400); RED BLOOD COUNT 3.04 10^6/uL (4.35-5.85); RED CELL DISTRIBUTION WIDTH 19.1 % (10.0-14.5); WHITE BLOOD COUNT 14.6 10^3/uL (4.3-11.0)
[2016-08-11 17:00] LABS: ALBUMIN 3.5 G/DL (3.2-4.5); BILIRUBIN,TOTAL 0.5 MG/DL (0.1-1.0); CALCIUM 9.9 MG/DL (8.5-10.1); CREATININE SERUM 1.24 MG/DL (0.60-1.30); POTASSIUM 4.9 MMOL/L (3.6-5.0); TOTAL PROTEIN 6.5 G/DL (6.4-8.2)
[2016-08-11 17:21] LABS: THYROID STIMULATING HORMONE 1.09 UIU/ML (0.35-4.94)
[2016-08-18 16:25] LABS: BASOPHILS % (AUTO) 0 % (0-10); EOSINOPHILS # (AUTO) 0.1 10^3/uL (0.0-0.3); EOSINOPHILS % (AUTO) 1 % (0-10); LYMPHOCYTES # (AUTO) 0.9 X 10^3 (1.0-4.0); LYMPHOCYTES % (AUTO) 8 % (12-44); MEAN CORPUSCULAR HEMOGLOBIN 36 PG (25-34); MEAN CORPUSCULAR HGB CONC 33 G/DL (32-36); MEAN CORPUSCULAR VOLUME 108 FL (80-99); MEAN PLATELET VOLUME 8.5 FL (7.4-10.4); MONOCYTES % (AUTO) 8 % (0-12); NEUTROPHILS % (AUTO) 83 % (42-75); PLATELET COUNT 280 10^3/uL (130-400); RED BLOOD COUNT 2.91 10^6/uL (4.35-5.85); RED CELL DISTRIBUTION WIDTH 20.1 % (10.0-14.5)
[2016-08-18 16:51] LABS: ALANINE AMINOTRANSFERASE 26 U/L (0-55); ALBUMIN 3.2 G/DL (3.2-4.5); ANION GAP 10 MMOL/L (5-14); ASPARTATE AMINO TRANSFERASE 24 U/L (5-34); BILIRUBIN,TOTAL 0.6 MG/DL (0.1-1.0); BLOOD UREA NITROGEN 22 MG/DL (7-18); BUN/CREATININE RATIO 21; CALCIUM 9.3 MG/DL (8.5-10.1); CARBON DIOXIDE 22 MMOL/L (21-32); CHLORIDE 107 MMOL/L (98-107); CREATININE SERUM 1.03 MG/DL (0.60-1.30); GFR ESTIMATED > 60; GLUCOSE 97 MG/DL (70-105); POTASSIUM 4.2 MMOL/L (3.6-5.0); SODIUM 139 MMOL/L (135-145)
[2016-08-25 16:05] LABS: BASOPHILS % (AUTO) 0 % (0-10); EOSINOPHILS # (AUTO) 0.1 10^3/uL (0.0-0.3); EOSINOPHILS % (AUTO) 0 % (0-10); LYMPHOCYTES # (AUTO) 0.8 X 10^3 (1.0-4.0); LYMPHOCYTES % (AUTO) 6 % (12-44); MEAN CORPUSCULAR HEMOGLOBIN 36 PG (25-34); MEAN CORPUSCULAR HGB CONC 33 G/DL (32-36); MEAN CORPUSCULAR VOLUME 109 FL (80-99); MEAN PLATELET VOLUME 8.4 FL (7.4-10.4); MONOCYTES # (AUTO) 0.7 X 10^3 (0.0-1.0); MONOCYTES % (AUTO) 6 % (0-12); NEUTROPHILS # (AUTO) 10.7 X 10^3 (1.8-7.8); NEUTROPHILS % (AUTO) 87 % (42-75); PLATELET COUNT 297 10^3/uL (130-400); RED BLOOD COUNT 2.95 10^6/uL (4.35-5.85); RED CELL DISTRIBUTION WIDTH 19.1 % (10.0-14.5); WHITE BLOOD COUNT 12.3 10^3/uL (4.3-11.0)
[2016-08-25 16:31] LABS: ALANINE AMINOTRANSFERASE 29 U/L (0-55); ALBUMIN 3.4 G/DL (3.2-4.5); ANION GAP 7 MMOL/L (5-14); ASPARTATE AMINO TRANSFERASE 29 U/L (5-34); BILIRUBIN,TOTAL 0.8 MG/DL (0.1-1.0); BLOOD UREA NITROGEN 18 MG/DL (7-18); BUN/CREATININE RATIO 16; CALCIUM 9.6 MG/DL (8.5-10.1); CARBON DIOXIDE 27 MMOL/L (21-32); CHLORIDE 102 MMOL/L (98-107); CREATININE SERUM 1.14 MG/DL (0.60-1.30); GFR ESTIMATED > 60; GLUCOSE 123 MG/DL (70-105); POTASSIUM 4.5 MMOL/L (3.6-5.0); SODIUM 136 MMOL/L (135-145); TOTAL PROTEIN 6.5 G/DL (6.4-8.2)
[2016-09-01 15:45] LABS: BASOPHILS % (AUTO) 0 % (0-10); EOSINOPHILS # (AUTO) 0.2 10^3/uL (0.0-0.3); EOSINOPHILS % (AUTO) 2 % (0-10); LYMPHOCYTES # (AUTO) 0.9 X 10^3 (1.0-4.0); LYMPHOCYTES % (AUTO) 9 % (12-44); MEAN CORPUSCULAR HEMOGLOBIN 36 PG (25-34); MEAN CORPUSCULAR HGB CONC 33 G/DL (32-36); MEAN CORPUSCULAR VOLUME 110 FL (80-99); MEAN PLATELET VOLUME 8.6 FL (7.4-10.4); MONOCYTES # (AUTO) 0.7 X 10^3 (0.0-1.0); MONOCYTES % (AUTO) 7 % (0-12); NEUTROPHILS # (AUTO) 7.9 X 10^3 (1.8-7.8); NEUTROPHILS % (AUTO) 82 % (42-75); PLATELET COUNT 285 10^3/uL (130-400); RED BLOOD COUNT 3.11 10^6/uL (4.35-5.85); RED CELL DISTRIBUTION WIDTH 19.5 % (10.0-14.5); WHITE BLOOD COUNT 9.7 10^3/uL (4.3-11.0)
[2016-09-01 16:16] LABS: ALBUMIN 3.5 G/DL (3.2-4.5); BILIRUBIN,TOTAL 0.8 MG/DL (0.1-1.0); CALCIUM 9.8 MG/DL (8.5-10.1); CREATININE SERUM 1.19 MG/DL (0.60-1.30); POTASSIUM 4.6 MMOL/L (3.6-5.0); TOTAL PROTEIN 6.6 G/DL (6.4-8.2)
[2016-09-08 15:35] LABS: BASOPHILS % (AUTO) 0 % (0-10); EOSINOPHILS % (AUTO) 0 % (0-10); LYMPHOCYTES # (AUTO) 1.2 X 10^3 (1.0-4.0); LYMPHOCYTES % (AUTO) 10 % (12-44); MEAN CORPUSCULAR HEMOGLOBIN 37 PG (25-34); MEAN CORPUSCULAR HGB CONC 34 G/DL (32-36); MEAN CORPUSCULAR VOLUME 110 FL (80-99); MEAN PLATELET VOLUME 8.6 FL (7.4-10.4); MONOCYTES # (AUTO) 1.1 X 10^3 (0.0-1.0); MONOCYTES % (AUTO) 9 % (0-12); NEUTROPHILS # (AUTO) 9.9 X 10^3 (1.8-7.8); NEUTROPHILS % (AUTO) 81 % (42-75); PLATELET COUNT 251 10^3/uL (130-400); RED BLOOD COUNT 3.04 10^6/uL (4.35-5.85); RED CELL DISTRIBUTION WIDTH 19.6 % (10.0-14.5); WHITE BLOOD COUNT 12.2 10^3/uL (4.3-11.0)
[2016-09-08 15:55] LABS: ALANINE AMINOTRANSFERASE 17 U/L (0-55); ALBUMIN 3.6 G/DL (3.2-4.5); ANION GAP 9 MMOL/L (5-14); ASPARTATE AMINO TRANSFERASE 23 U/L (5-34); BILIRUBIN,TOTAL 0.6 MG/DL (0.1-1.0); BLOOD UREA NITROGEN 17 MG/DL (7-18); BUN/CREATININE RATIO 15; CALCIUM 9.7 MG/DL (8.5-10.1); CARBON DIOXIDE 25 MMOL/L (21-32); CHLORIDE 102 MMOL/L (98-107); CREATININE SERUM 1.13 MG/DL (0.60-1.30); GFR ESTIMATED > 60; GLUCOSE 92 MG/DL (70-105); POTASSIUM 5.1 MMOL/L (3.6-5.0); SODIUM 136 MMOL/L (135-145); TOTAL PROTEIN 6.5 G/DL (6.4-8.2)
[~2016-09-15 10:51] MED LIST changes: -CATHETER FLUSH 10 ML SYR IV PRN; -IOHEXOL 350 MG/ML 100 ML (OMNIPAQUE 350) VIAL IV ONE; -NS 100 ML (IVPB) BAG IV ONE
[2016-09-15 15:14] LABS: BASOPHILS % (AUTO) 0 % (0-10); EOSINOPHILS # (AUTO) 0.1 10^3/uL (0.0-0.3); EOSINOPHILS % (AUTO) 1 % (0-10); LYMPHOCYTES # (AUTO) 0.7 X 10^3 (1.0-4.0); LYMPHOCYTES % (AUTO) 8 % (12-44); MEAN CORPUSCULAR HEMOGLOBIN 38 PG (25-34); MEAN CORPUSCULAR HGB CONC 35 G/DL (32-36); MEAN CORPUSCULAR VOLUME 110 FL (80-99); MEAN PLATELET VOLUME 8.7 FL (7.4-10.4); MONOCYTES # (AUTO) 0.5 X 10^3 (0.0-1.0); MONOCYTES % (AUTO) 6 % (0-12); NEUTROPHILS # (AUTO) 7.6 X 10^3 (1.8-7.8); NEUTROPHILS % (AUTO) 85 % (42-75); PLATELET COUNT 59 10^3/uL (130-400); RED BLOOD COUNT 3.08 10^6/uL (4.35-5.85); RED CELL DISTRIBUTION WIDTH 17.9 % (10.0-14.5)
[2016-09-15 15:43] LABS: ALANINE AMINOTRANSFERASE 21 U/L (0-55); ALBUMIN 3.5 G/DL (3.2-4.5); ANION GAP 9 MMOL/L (5-14); BILIRUBIN,TOTAL 0.9 MG/DL (0.1-1.0); BLOOD UREA NITROGEN 15 MG/DL (7-18); BUN/CREATININE RATIO 13; CALCIUM 9.6 MG/DL (8.5-10.1); CARBON DIOXIDE 27 MMOL/L (21-32); CHLORIDE 101 MMOL/L (98-107); CREATININE SERUM 1.14 MG/DL (0.60-1.30); GFR ESTIMATED > 60; GLUCOSE 136 MG/DL (70-105); POTASSIUM 4.8 MMOL/L (3.6-5.0); SODIUM 137 MMOL/L (135-145); TOTAL PROTEIN 6.6 G/DL (6.4-8.2)
[2016-09-15 16:06] LABS: ASPARTATE AMINO TRANSFERASE 29 U/L (5-34)
== END 2016-09-21 | disposition home or self-care (01) ==
LOC: PAR 10:51
PROVIDERS: ATTEND Internal Medicine Hematology & Oncology
DX: C44.221 Squamous cell carcinoma of skin of unspecified ear and external auricular canal (principal); C77.0 Secondary and unspecified malignant neoplasm of lymph nodes of head, face and neck; E11.9 Type 2 diabetes mellitus without complications; D64.9 Anemia, unspecified; Z92.3 Personal history of irradiation; Z79.899 Other long term (current) drug therapy
CPT/HCPCS: 36415; 36591; 80048; 80053; 82728; 83540; 84443; 85025; 99213

== ENCOUNTER 2016-12-15 10:53 | Outpatient (RCR) | payer MEDICARE ==
[2016-09-22 16:20] LABS: BASOPHILS % (AUTO) 0 % (0-10); EOSINOPHILS # (AUTO) 0.1 10^3/uL (0.0-0.3); EOSINOPHILS % (AUTO) 1 % (0-10); LYMPHOCYTES # (AUTO) 1.4 X 10^3 (1.0-4.0); LYMPHOCYTES % (AUTO) 14 % (12-44); MEAN CORPUSCULAR HEMOGLOBIN 39 PG (25-34); MEAN CORPUSCULAR HGB CONC 35 G/DL (32-36); MEAN CORPUSCULAR VOLUME 112 FL (80-99); MEAN PLATELET VOLUME 8.4 FL (7.4-10.4); MONOCYTES # (AUTO) 0.8 X 10^3 (0.0-1.0); MONOCYTES % (AUTO) 8 % (0-12); NEUTROPHILS # (AUTO) 7.2 X 10^3 (1.8-7.8); NEUTROPHILS % (AUTO) 77 % (42-75); PLATELET COUNT 215 10^3/uL (130-400); RED BLOOD COUNT 2.84 10^6/uL (4.35-5.85); RED CELL DISTRIBUTION WIDTH 17.8 % (10.0-14.5); WHITE BLOOD COUNT 9.4 10^3/uL (4.3-11.0)
[2016-09-22 17:00] LABS: ALANINE AMINOTRANSFERASE 18 U/L (0-55); ALBUMIN 3.4 G/DL (3.2-4.5); ANION GAP 7 MMOL/L (5-14); ASPARTATE AMINO TRANSFERASE 26 U/L (5-34); BILIRUBIN,TOTAL 0.6 MG/DL (0.1-1.0); BLOOD UREA NITROGEN 14 MG/DL (7-18); BUN/CREATININE RATIO 13; CALCIUM 9.5 MG/DL (8.5-10.1); CARBON DIOXIDE 29 MMOL/L (21-32); CHLORIDE 105 MMOL/L (98-107); GFR ESTIMATED > 60; GLUCOSE 128 MG/DL (70-105); POTASSIUM 4.9 MMOL/L (3.6-5.0); SODIUM 141 MMOL/L (135-145); TOTAL PROTEIN 6.1 G/DL (6.4-8.2)
[2016-09-29 16:17] LABS: BASOPHILS % (AUTO) 0 % (0-10); EOSINOPHILS # (AUTO) 0.1 10^3/uL (0.0-0.3); EOSINOPHILS % (AUTO) 1 % (0-10); LYMPHOCYTES # (AUTO) 1.1 X 10^3 (1.0-4.0); LYMPHOCYTES % (AUTO) 10 % (12-44); MEAN CORPUSCULAR HEMOGLOBIN 39 PG (25-34); MEAN CORPUSCULAR HGB CONC 34 G/DL (32-36); MEAN CORPUSCULAR VOLUME 114 FL (80-99); MEAN PLATELET VOLUME 8.8 FL (7.4-10.4); MONOCYTES # (AUTO) 0.9 X 10^3 (0.0-1.0); MONOCYTES % (AUTO) 8 % (0-12); NEUTROPHILS # (AUTO) 8.8 X 10^3 (1.8-7.8); NEUTROPHILS % (AUTO) 81 % (42-75); PLATELET COUNT 257 10^3/uL (130-400); RED BLOOD COUNT 2.73 10^6/uL (4.35-5.85); RED CELL DISTRIBUTION WIDTH 17.4 % (10.0-14.5); WHITE BLOOD COUNT 10.8 10^3/uL (4.3-11.0)
[2016-09-29 16:45] LABS: ALANINE AMINOTRANSFERASE 18 U/L (0-55); ALBUMIN 3.4 G/DL (3.2-4.5); ANION GAP 7 MMOL/L (5-14); ASPARTATE AMINO TRANSFERASE 25 U/L (5-34); BILIRUBIN,TOTAL 0.7 MG/DL (0.1-1.0); BLOOD UREA NITROGEN 15 MG/DL (7-18); BUN/CREATININE RATIO 14; CALCIUM 9.5 MG/DL (8.5-10.1); CARBON DIOXIDE 29 MMOL/L (21-32); CHLORIDE 103 MMOL/L (98-107); CREATININE SERUM 1.08 MG/DL (0.60-1.30); GFR ESTIMATED > 60; GLUCOSE 106 MG/DL (70-105); POTASSIUM 4.6 MMOL/L (3.6-5.0); SODIUM 139 MMOL/L (135-145); TOTAL PROTEIN 6.2 G/DL (6.4-8.2)
[2016-10-06 15:55] LABS: BASOPHILS % (AUTO) 0 % (0-10); EOSINOPHILS % (AUTO) 0 % (0-10); LYMPHOCYTES # (AUTO) 1.1 X 10^3 (1.0-4.0); LYMPHOCYTES % (AUTO) 12 % (12-44); MEAN CORPUSCULAR HEMOGLOBIN 38 PG (25-34); MEAN CORPUSCULAR HGB CONC 33 G/DL (32-36); MEAN CORPUSCULAR VOLUME 115 FL (80-99); MEAN PLATELET VOLUME 8.5 FL (7.4-10.4); MONOCYTES # (AUTO) 0.7 X 10^3 (0.0-1.0); MONOCYTES % (AUTO) 7 % (0-12); NEUTROPHILS # (AUTO) 7.5 X 10^3 (1.8-7.8); NEUTROPHILS % (AUTO) 81 % (42-75); PLATELET COUNT 274 10^3/uL (130-400); RED BLOOD COUNT 2.84 10^6/uL (4.35-5.85); WHITE BLOOD COUNT 9.3 10^3/uL (4.3-11.0)
[2016-10-06 16:27] LABS: ALBUMIN 3.6 G/DL (3.2-4.5); BILIRUBIN,TOTAL 0.6 MG/DL (0.1-1.0); CALCIUM 9.6 MG/DL (8.5-10.1); CREATININE SERUM 1.27 MG/DL (0.60-1.30); POTASSIUM 4.9 MMOL/L (3.6-5.0); TOTAL PROTEIN 6.5 G/DL (6.4-8.2)
[2016-10-13 16:04] LABS: BASOPHILS % (AUTO) 0 % (0-10); EOSINOPHILS % (AUTO) 0 % (0-10); LYMPHOCYTES # (AUTO) 1.3 X 10^3 (1.0-4.0); LYMPHOCYTES % (AUTO) 10 % (12-44); MEAN CORPUSCULAR HEMOGLOBIN 39 PG (25-34); MEAN CORPUSCULAR HGB CONC 34 G/DL (32-36); MEAN CORPUSCULAR VOLUME 115 FL (80-99); MEAN PLATELET VOLUME 8.9 FL (7.4-10.4); MONOCYTES # (AUTO) 0.8 X 10^3 (0.0-1.0); MONOCYTES % (AUTO) 6 % (0-12); NEUTROPHILS # (AUTO) 10.2 X 10^3 (1.8-7.8); NEUTROPHILS % (AUTO) 83 % (42-75); PLATELET COUNT 229 10^3/uL (130-400); RED BLOOD COUNT 2.71 10^6/uL (4.35-5.85); RED CELL DISTRIBUTION WIDTH 15.1 % (10.0-14.5); WHITE BLOOD COUNT 12.3 10^3/uL (4.3-11.0)
[2016-10-13 16:39] LABS: ALANINE AMINOTRANSFERASE 20 U/L (0-55); ALBUMIN 3.5 G/DL (3.2-4.5); ANION GAP 7 MMOL/L (5-14); ASPARTATE AMINO TRANSFERASE 26 U/L (5-34); BILIRUBIN,TOTAL 0.7 MG/DL (0.1-1.0); BLOOD UREA NITROGEN 15 MG/DL (7-18); BUN/CREATININE RATIO 14; CALCIUM 9.6 MG/DL (8.5-10.1); CARBON DIOXIDE 28 MMOL/L (21-32); CHLORIDE 101 MMOL/L (98-107); CREATININE SERUM 1.09 MG/DL (0.60-1.30); GFR ESTIMATED > 60; GLUCOSE 94 MG/DL (70-105); POTASSIUM 5.1 MMOL/L (3.6-5.0); SODIUM 136 MMOL/L (135-145); TOTAL PROTEIN 6.2 G/DL (6.4-8.2)
[2016-10-20 16:14] LABS: BASOPHILS % (AUTO) 0 % (0-10); EOSINOPHILS % (AUTO) 0 % (0-10); LYMPHOCYTES # (AUTO) 0.9 X 10^3 (1.0-4.0); LYMPHOCYTES % (AUTO) 9 % (12-44); MEAN CORPUSCULAR HEMOGLOBIN 38 PG (25-34); MEAN CORPUSCULAR HGB CONC 33 G/DL (32-36); MEAN CORPUSCULAR VOLUME 116 FL (80-99); MONOCYTES # (AUTO) 0.8 X 10^3 (0.0-1.0); MONOCYTES % (AUTO) 8 % (0-12); NEUTROPHILS % (AUTO) 83 % (42-75); PLATELET COUNT 238 10^3/uL (130-400); RED BLOOD COUNT 2.77 10^6/uL (4.35-5.85); RED CELL DISTRIBUTION WIDTH 15.8 % (10.0-14.5); WHITE BLOOD COUNT 9.7 10^3/uL (4.3-11.0)
[2016-10-20 16:59] LABS: ALANINE AMINOTRANSFERASE 18 U/L (0-55); ALBUMIN 3.4 G/DL (3.2-4.5); ANION GAP 8 MMOL/L (5-14); ASPARTATE AMINO TRANSFERASE 22 U/L (5-34); BILIRUBIN,TOTAL 0.6 MG/DL (0.1-1.0); BLOOD UREA NITROGEN 12 MG/DL (7-18); BUN/CREATININE RATIO 13; CALCIUM 9.3 MG/DL (8.5-10.1); CARBON DIOXIDE 26 MMOL/L (21-32); CHLORIDE 104 MMOL/L (98-107); CREATININE SERUM 0.92 MG/DL (0.60-1.30); GFR ESTIMATED > 60; GLUCOSE 122 MG/DL (70-105); POTASSIUM 4.1 MMOL/L (3.6-5.0); SODIUM 138 MMOL/L (135-145); TOTAL PROTEIN 6.2 G/DL (6.4-8.2)
[2016-11-17 16:24] LABS: BASOPHILS % (AUTO) 0 % (0-10); EOSINOPHILS % (AUTO) 0 % (0-10); LYMPHOCYTES # (AUTO) 0.7 X 10^3 (1.0-4.0); LYMPHOCYTES % (AUTO) 5 % (12-44); MEAN CORPUSCULAR HEMOGLOBIN 36 PG (25-34); MEAN CORPUSCULAR HGB CONC 33 G/DL (32-36); MEAN CORPUSCULAR VOLUME 112 FL (80-99); MEAN PLATELET VOLUME 8.7 FL (7.4-10.4); MONOCYTES # (AUTO) 0.8 X 10^3 (0.0-1.0); MONOCYTES % (AUTO) 6 % (0-12); NEUTROPHILS # (AUTO) 11.8 X 10^3 (1.8-7.8); NEUTROPHILS % (AUTO) 88 % (42-75); PLATELET COUNT 267 10^3/uL (130-400); RED BLOOD COUNT 3.16 10^6/uL (4.35-5.85); RED CELL DISTRIBUTION WIDTH 13.9 % (10.0-14.5); WHITE BLOOD COUNT 13.4 10^3/uL (4.3-11.0)
[2016-11-17 16:54] LABS: ALANINE AMINOTRANSFERASE 22 U/L (0-55); ALBUMIN 3.4 G/DL (3.2-4.5); ANION GAP 8 MMOL/L (5-14); ASPARTATE AMINO TRANSFERASE 24 U/L (5-34); BILIRUBIN,TOTAL 0.5 MG/DL (0.1-1.0); BLOOD UREA NITROGEN 14 MG/DL (7-18); BUN/CREATININE RATIO 16; CALCIUM 9.9 MG/DL (8.5-10.1); CARBON DIOXIDE 28 MMOL/L (21-32); CHLORIDE 101 MMOL/L (98-107); CREATININE SERUM 0.89 MG/DL (0.60-1.30); GFR ESTIMATED > 60; GLUCOSE 180 MG/DL (70-105); POTASSIUM 4.4 MMOL/L (3.6-5.0); SODIUM 137 MMOL/L (135-145); TOTAL PROTEIN 6.6 G/DL (6.4-8.2)
[2016-12-08 16:40] LABS: BASOPHILS % (AUTO) 0 % (0-10); EOSINOPHILS % (AUTO) 0 % (0-10); LYMPHOCYTES # (AUTO) 0.8 X 10^3 (1.0-4.0); LYMPHOCYTES % (AUTO) 5 % (12-44); MEAN CORPUSCULAR HEMOGLOBIN 36 PG (25-34); MEAN CORPUSCULAR HGB CONC 32 G/DL (32-36); MEAN CORPUSCULAR VOLUME 112 FL (80-99); MEAN PLATELET VOLUME 8.9 FL (7.4-10.4); MONOCYTES # (AUTO) 0.9 X 10^3 (0.0-1.0); MONOCYTES % (AUTO) 5 % (0-12); NEUTROPHILS # (AUTO) 14.9 X 10^3 (1.8-7.8); NEUTROPHILS % (AUTO) 90 % (42-75); PLATELET COUNT 245 10^3/uL (130-400); RED BLOOD COUNT 3.05 10^6/uL (4.35-5.85); RED CELL DISTRIBUTION WIDTH 13.6 % (10.0-14.5); WHITE BLOOD COUNT 16.7 10^3/uL (4.3-11.0)
[2016-12-08 17:00] LABS: ALANINE AMINOTRANSFERASE 20 U/L (0-55); ANION GAP 6 MMOL/L (5-14); ASPARTATE AMINO TRANSFERASE 22 U/L (5-34); BILIRUBIN,TOTAL 0.4 MG/DL (0.1-1.0); BLOOD UREA NITROGEN 14 MG/DL (7-18); BUN/CREATININE RATIO 16 (0-20); CALCIUM 10.7 MG/DL (8.5-10.1); CARBON DIOXIDE 30 MMOL/L (21-32); CHLORIDE 100 MMOL/L (98-107); GFR ESTIMATED > 60; GLUCOSE 218 MG/DL (70-105); HEMOLYSIS 3 (-100-29); ICTERUS 0.3 (-100-1.9); LIPEMIA 0 (-100-49); POTASSIUM 4.4 MMOL/L (3.6-5.0); SODIUM 136 MMOL/L (135-145); TOTAL PROTEIN 6.5 GM/DL (6.4-8.2)
[2016-12-08 17:24] LABS: THYROID STIMULATING HORMONE 0.85 UIU/ML (0.35-4.94)
== END 2016-12-21 | disposition home or self-care (01) ==
LOC: PAR 10:53
PROVIDERS: ATTEND Internal Medicine Hematology & Oncology
DX: C44.221 Squamous cell carcinoma of skin of unspecified ear and external auricular canal (principal); C77.0 Secondary and unspecified malignant neoplasm of lymph nodes of head, face and neck; E11.9 Type 2 diabetes mellitus without complications; D64.9 Anemia, unspecified; Z92.3 Personal history of irradiation; Z79.899 Other long term (current) drug therapy
CPT/HCPCS: 36415; 36591; 80053; 82378; 82728; 83540; 83550; 84443; 85025; 99213

== ENCOUNTER 2016-12-29 13:17 | Outpatient (RCR) | payer MEDICARE ==
[2016-12-29 15:57] LABS: BASOPHILS % (AUTO) 0 % (0-10); EOSINOPHILS % (AUTO) 0 % (0-10); LYMPHOCYTES # (AUTO) 0.9 X 10^3 (1.0-4.0); LYMPHOCYTES % (AUTO) 3 % (12-44); MEAN CORPUSCULAR HEMOGLOBIN 36 PG (25-34); MEAN CORPUSCULAR HGB CONC 33 G/DL (32-36); MEAN CORPUSCULAR VOLUME 110 FL (80-99); MEAN PLATELET VOLUME 8.9 FL (7.4-10.4); MONOCYTES # (AUTO) 1.5 X 10^3 (0.0-1.0); MONOCYTES % (AUTO) 6 % (0-12); NEUTROPHILS # (AUTO) 24.6 X 10^3 (1.8-7.8); NEUTROPHILS % (AUTO) 91 % (42-75); PLATELET COUNT 358 10^3/uL (130-400); RED BLOOD COUNT 3.02 10^6/uL (4.35-5.85); RED CELL DISTRIBUTION WIDTH 14.7 % (10.0-14.5)
[2016-12-29 16:45] LABS: ALANINE AMINOTRANSFERASE 19 U/L (0-55); ALBUMIN 2.9 GM/DL (3.2-4.5); ANION GAP 8 MMOL/L (5-14); ASPARTATE AMINO TRANSFERASE 19 U/L (5-34); BILIRUBIN,TOTAL 0.6 MG/DL (0.1-1.0); BLOOD UREA NITROGEN 23 MG/DL (7-18); BUN/CREATININE RATIO 24; CALCIUM 12.1 MG/DL (8.5-10.1); CARBON DIOXIDE 29 MMOL/L (21-32); CHLORIDE 99 MMOL/L (98-107); CREATININE SERUM 0.96 MG/DL (0.60-1.30); GFR ESTIMATED > 60; GLUCOSE 153 MG/DL (70-105); POTASSIUM 3.7 MMOL/L (3.6-5.0); SODIUM 136 MMOL/L (135-145); TOTAL PROTEIN 6.5 GM/DL (6.4-8.2)
== END 2017-03-02 09:42 | disposition home or self-care (01) ==
LOC: PAR 13:17
PROVIDERS: ATTEND Internal Medicine Hematology & Oncology
DX: C44.221 Squamous cell carcinoma of skin of unspecified ear and external auricular canal (principal); C77.0 Secondary and unspecified malignant neoplasm of lymph nodes of head, face and neck; E11.9 Type 2 diabetes mellitus without complications; D64.9 Anemia, unspecified; Z92.3 Personal history of irradiation; Z79.899 Other long term (current) drug therapy
CPT/HCPCS: 36591; 80053; 85025